=== PATIENT | female | born 1995 | race Caucasian/White ===

== ENCOUNTER 2023-03-21 14:26 | Emergency (ER) | payer OTHER ==
[~2023-03-21] VITALS: Ht 160 cm; Wt 97.7 kg
[2023-03-21 14:46] VITALS: TEMP 98.8
[2023-03-21 15:00] LABS: HEMATOCRIT 40.2 % (35.0-45.0); HEMOGLOBIN 13.4 g/dl (12.0-16.0); MONOCYTES # (AUTO) 0.3 X10'3 (0-0.9); RED BLOOD COUNT 4.57 X10'6 (4.20-5.60)
[2023-03-21 15:02] LABS: BASOPHILS % (AUTO) 0.4 % (0-1); EOSINOPHILS % (AUTO) 0.8 % (0-6); LYMPHOCYTES # (AUTO) 1.5 X10'3 (1.1-4.8); LYMPHOCYTES % (AUTO) 24.2 % (21-51); MEAN CORPUSCULAR HEMOGLOBIN 29.3 PG (27.0-31.0); MEAN CORPUSCULAR HGB CONC 33.3 g/dL (33.0-36.5); MEAN PLATELET VOLUME 10.1 FL (7.4-10.4); MONOCYTES % (AUTO) 4.4 % (2-12); NEUTROPHILS # (AUTO) 4.3 X10'3 (1.8-7.7); NEUTROPHILS % (AUTO) 70.2 % (42-75); PLATELET COUNT 235 X10'3 (140-440); RED CELL DISTRIBUTION WIDTH 13.1 % (11.5-14.5); WHITE BLOOD COUNT 6.1 X10'3 (4.5-11.0)
[2023-03-21 15:25] LABS: ALANINE AMINOTRANSFERASE 28 U/L (12-78); ALBUMIN/GLOBULIN RATIO 1.1 (1.1-1.5); ALKALINE PHOSPHATASE 46 IU/L (46-116); ANION GAP 11 (8-16); ASPARTATE AMINO TRANSFERASE 15 U/L (10-37); BILIRUBIN,TOTAL 0.4 MG/DL (0.1-1.0); BLOOD UREA NITROGEN 17 MG/DL (7-18); BUN/CREATININE RATIO 22.1 (10.0-20.0); CALCIUM 9.4 MG/DL (8.5-10.1); CHLORIDE 102 MMOL/L (99-107); CREATININE 0.77 MG/DL (0.40-0.90); GLUCOSE 103 MG/DL (70-104); POTASSIUM 3.3 MMOL/L (3.5-5.1); PRO BRAIN NATRIURETIC PEPTIDE 118 PG/ML (0-125); SODIUM 139 MMOL/L (135-145); TOTAL CARBON DIOXIDE 25.6 MMOL/L (24-32); TOTAL PROTEIN 7.6 G/DL (6.4-8.2); eCRCL 91 ML/MIN; eGFR 90 ML/MIN
[2023-03-21] MEDS ORDERED: normal saline 1000ml 1,000 ML IV ONE (16:30)
--- NOTE | 2023-03-21 16:46 | NUR ---
RN ATTEMPTING IV. PT REQ TO GO TO RESTROOM. RN WILL COMPLETE WHEN SHE RETURNS.
--- NOTE | 2023-03-21 17:28 | NUR ---
THIS RN UNABLE TO OBTAIN IV. 2ND RN TRYING WITH US.
[2023-03-21] MEDS ORDERED: potassium Cl 20 mEq SR tablet PO ONE (17:40)
--- NOTE | 2023-03-21 18:01 | NUR ---
2ND RN MIQUEL UNABLE TO OBTAIN IV WITH US. PER NINFA BENAVIDES PT MAY BE DISCHARGED WITHOUT RECEIVING BOLUS. PT EDUCATED ON THE IMPORTANCE OF DRINKING WATER AND VERBALIZED UNDERSTANDING.
--- NOTE | 2023-03-21 18:22 | NUR ---
RN EDUCATED PT ON HOW MUCH 1 CUP OF WATER IS AND THAT SHE NEEDS TO DRINK 8 OF THOSE WHEN SHE RETURNS HOME AND PT VERBALIZED UNDERSTANDING.
[2023-03-21 18:23] VITALS: BP 111/74; PULSE 81; RESP 18; O2SAT 97
--- NOTE | 2023-03-21 18:23 | NUR ---
PER NINFA BENAVIDES NO NEED TO COLLECT URINE P/T DISCHARGE.
== END 2023-03-21 18:34 | disposition home or self-care (01) ==
LOC: ER 14:26
DX: E87.6 Hypokalemia (principal); E86.0 Dehydration
CPT/HCPCS: 36415; 80053; 83880; 84484; 85025; 93005; 99284; J7030